=== PATIENT | male | born 1940 | race Caucasian/White ===

== ENCOUNTER 2023-12-03 10:02 | Inpatient (IN) | payer MEDICARE ==
[2023-12-03 10:28] LABS: #Monocytes 0.8 thou/uL (0.11-0.59); #Neutrophils 7.4 thou/uL (1.40-6.50); %Basophils 0.1 % (0.0-1.0); %Monocytes 9.1 % (0.0-10.0); %Neutrophils 84.3 % (42.0-75.0); Hemoglobin 11.8 g/dL (14.0-18.0); Mean Corpuscular HGB CONC 35.8 g/dL (32.0-36.0); Mean Corpuscular Hemoglobin 34.2 pg (27.0-31.0); Mean Corpuscular Volume 95.7 fl (78.0-98.0); Mean Platelet Volume 9.2 fL (7.4-10.4); Platelet Count 155 10x3/uL (130-400); RBC Distribution Width 11.4 % (11.5-14.5); Red Blood Cell (RBC) Count 3.45 mill/uL (4.70-6.10); White Blood Cell (WBC) Count 8.8 10x3/uL (4.8-10.8)
[2023-12-03] MEDS ORDERED: Iopamidol-370 76% 500 ML MDV (1 ML CHARGE) ONE (10:43)
[2023-12-03 10:44] LABS: ALT (SGPT) 13 U/L (8-55); AST (SGOT) 16 U/L (5-34); Albumin 3.9 g/dL (3.4-4.8); Alkaline Phosphatase 64 U/L (40-110); Anion Gap 15 mmol/L (10-20); BUN (Urea Nitrogen) 15 mg/dL (8.4-25.7); Bilirubin, Total 1.2 mg/dL (0.2-1.2); Calc. Creatinine Clearance 0 mL/min (70-130); Calcium 8.9 mg/dL (7.8-10.44); Carbon Dioxide 24 mmol/L (23-31); Chloride 97 mmol/L (98-107); Estimated GFR 88; Globulin 2.7 g/dL (2.4-3.5); Glucose 142 mg/dL (83-110); Potassium 3.2 mmol/L (3.5-5.1); Protein, Total 6.6 g/dL (5.8-8.1); Sodium 133 mmol/L (136-145)
[2023-12-03 11:38] LABS: Acetaminophen Less than 10 mcg/mL (10.0-30.0); Alcohol Less than 10.0 mg/dL (Less than 10); CK (CPK) 75 U/L (30-200); Salicylate Less than 8.0 mg/dL (15.0-30.0)
[2023-12-03] MEDS ORDERED: fentaNYL 50 mcg/mL 1 mL Vial ONE (11:39)
[2023-12-03 11:47] LABS: Troponin I 0.049 ng/mL (< 0.028)
[2023-12-03 11:50] LABS: INR-International Normal Ratio 1.1; PTT 36.3 sec (22.9-36.1); Prothrombin Time 14.4 sec (12.0-14.7)
[2023-12-03] MEDS ORDERED: Labetalol HCl 100 MG/20 ML VIAL ONE (12:29)
[2023-12-03] MEDS ORDERED: Potassium Bicarbonate/Cit Ac 20 MEQ TAB ONE (12:29)
[2023-12-03] MEDS ORDERED: Furosemide 40 MG (4 mL) VIAL ONE (12:29)
[2023-12-03] MEDS ORDERED: Aspirin Chewable 81 MG TAB ONE (13:09)
[2023-12-03 13:40] LABS: Bilirubin Negative (Negative); Blood, Urine 3+ (Negative); CAUTI Indications for Culture Alt mental st,lethar; Clarity Turbid (Clear); Glucose, Urine (Dipstick) Normal (Negative); Ketone, Urine Negative (Negative); Leukocyte Negative Leu/uL (Negative); Nitrite Negative (Negative); Protein, Urine (Dipstick) 50 mg/dL (Neg-Trace); Specific Gravity, Urine 1.011 (1.002-1.036); Squamous Epithelial None Seen HPF (0-3); Urobilinogen Normal mg/dL (Less than 2); pH, Urine 7.5 (5.0-9.0)
[2023-12-03 13:48] LABS: Amphetamine Not Detected (NotDetected); Barbiturates Screen Not Detected (NotDetected); Benzodiazepine Screen Not Detected (NotDetected); Cocaine Metabolite Screen Not Detected (NotDetected); Methadone Not Detected (NotDetected); Methamphetamine Not Detected (NotDetected); Opiate Screen Detected (NotDetected); Oxycodone Screen Not Detected (NotDetected); Phencyclidine (PCP) Not Detected (NotDetected); THC/Cannabinoid Screen Not Detected (NotDetected); Tricyclic Screen Not Detected (NotDetected)
[2023-12-03 13:57] LABS: Lactic Acid 1.3 mmol/L (0.5-2.2)
[2023-12-03 14:12] LABS: Bacteria/HPF 4+ HPF (None Seen); RBC/HPF 0-3 HPF (0-3)
[2023-12-03 14:16] LABS: Urine Culture Reflex No No
[2023-12-03 14:18] LABS: Troponin I 0.044 ng/mL (< 0.028)
[2023-12-03] MEDS ORDERED: Senokot S 8.6-50 MG TAB PO PRN (15:13)
[2023-12-03] MEDS ORDERED: Guaifenesin DM 100-10/5 ML UDCUP PO PRN (15:13)
[2023-12-03] MEDS ORDERED: Labetalol HCl 100 MG/20 ML VIAL SLOW IVP PRN (15:13)
[2023-12-03] MEDS ORDERED: Ondansetron PF 4 MG/2 ML Vial IVP PRN (15:13)
[2023-12-03] MEDS: hydrALAZINE 20 MG/ML VIAL SLOW IVP PRN (16:47)
[2023-12-03] MEDS ORDERED: hydrALAZINE 20 MG/ML VIAL ONE (16:48)
[2023-12-03] MEDS: HYDROcodone/Acetaminophen 5/325 mg Tablet PO PRN (18:25)
[2023-12-03 19:12] LABS: Troponin I 0.071 ng/mL (< 0.028)
[2023-12-03] MEDS ORDERED: HYDROcodone/Acetaminophen 5/325 mg Tablet PO PRN (21:48)
[2023-12-03] MEDS: Sodium Chloride 0.9% 500 ML IV SCH (21:48)
[2023-12-03] MEDS: Simvastatin 5 MG TAB PO SCH (23:43)
[2023-12-03] MEDS: Multivit, Therapeutic 1 TAB PO SCH (23:43)
[2023-12-03] MEDS: Apixaban 2.5 MG TAB PO SCH (23:43)
[2023-12-03] MEDS: Multivitamin w/Zinc Stress 1 TAB PO SCH (23:43)
[2023-12-03] MEDS: Ketorolac Tromethamine 30 MG (1 mL) VIAL IVP SCH (23:44)
[2023-12-04 05:47] LABS: #Neutrophils 8.6 thou/uL (1.40-6.50); %Lymphocytes 6.6 % (21.0-51.0); %Monocytes 9.9 % (0.0-10.0); Hematocrit 32.4 % (42.0-52.0); Hemoglobin 11.2 g/dL (14.0-18.0); Mean Corpuscular HGB CONC 34.6 g/dL (32.0-36.0); Mean Corpuscular Hemoglobin 34.3 pg (27.0-31.0); Mean Platelet Volume 9.6 fL (7.4-10.4); Platelet Count 172 10x3/uL (130-400); RBC Distribution Width 11.8 % (11.5-14.5); Red Blood Cell (RBC) Count 3.27 mill/uL (4.70-6.10); White Blood Cell (WBC) Count 10.4 10x3/uL (4.8-10.8)
[2023-12-04 05:51] LABS: Mean Corpuscular Volume 99.1 fl (78.0-98.0)
[2023-12-04 06:12] LABS: Anion Gap 15 mmol/L (10-20); BUN (Urea Nitrogen) 21 mg/dL (8.4-25.7); Calc. Creatinine Clearance 39 mL/min (70-130); Carbon Dioxide 28 mmol/L (23-31); Chloride 98 mmol/L (98-107); Estimated GFR 67; Glucose 107 mg/dL (83-110); Magnesium 2.2 mg/dL (1.6-2.6); Potassium 3.9 mmol/L (3.5-5.1); Sodium 137 mmol/L (136-145)
[2023-12-04] MEDS: Furosemide 40 MG (4 mL) VIAL SLOW IVP SCH (07:37)
[2023-12-04] MEDS: Tamsulosin HCl 0.4 MG CAP PO SCH (09:57)
[2023-12-04] MEDS: Lidocaine 4% Patch TD SCH (09:57)
[2023-12-04] MEDS: Finasteride 5 MG TAB PO SCH (09:57)
[2023-12-04] MEDS: GoLYTELY 4,000 ml Bottle PO SCH (19:14)
[2023-12-04] MEDS: Cephalexin 250 MG CAP PO SCH (20:10)
[2023-12-04] MEDS: Transdermal Patch Removal TOP SCH (20:11)
[2023-12-05] MEDS: Ondansetron ODT 4 MG TAB PO PRN (00:39)
[2023-12-05] MEDS ORDERED: Electrolyte Replacement Protocol 1 EACH FS SCH ×2 (04:15→16:00)
[2023-12-05] MEDS: Metoprolol Tartrate 5 MG (5 mL) VIAL IVP SCH ×2 (04:27→05:50)
[2023-12-05 04:46] LABS: Anion Gap 14 mmol/L (10-20); BUN (Urea Nitrogen) 30 mg/dL (8.4-25.7); Calc. Creatinine Clearance 49 mL/min (70-130); Calcium 8.4 mg/dL (7.8-10.44); Carbon Dioxide 29 mmol/L (23-31); Chloride 96 mmol/L (98-107); Estimated GFR 82; Glucose 110 mg/dL (83-110); Magnesium 2.2 mg/dL (1.6-2.6); Potassium 2.8 mmol/L (3.5-5.1); Sodium 136 mmol/L (136-145)
[2023-12-05 04:50] LABS: Troponin I 0.051 ng/mL (< 0.028)
[2023-12-05] MEDS: Potassium Bicarbonate/Cit Ac 20 MEQ TAB PO SCH (05:04)
[2023-12-05 05:38] LABS: #Monocytes 0.8 thou/uL (0.11-0.59); %Basophils 0.1 % (0.0-1.0); %Eosinophils 0.1 % (0.0-10.0); %Lymphocytes 9.1 % (21.0-51.0); %Monocytes 10.6 % (0.0-10.0); %Neutrophils 79.6 % (42.0-75.0); Hemoglobin 10.3 g/dL (14.0-18.0); Mean Corpuscular HGB CONC 35.5 g/dL (32.0-36.0); Mean Corpuscular Hemoglobin 34.7 pg (27.0-31.0); Mean Corpuscular Volume 97.6 fl (78.0-98.0); Mean Platelet Volume 9.4 fL (7.4-10.4); Platelet Count 168 10x3/uL (130-400); RBC Distribution Width 11.8 % (11.5-14.5); Red Blood Cell (RBC) Count 2.97 mill/uL (4.70-6.10); White Blood Cell (WBC) Count 7.6 10x3/uL (4.8-10.8)
[2023-12-05] MEDS: Sodium Chloride 0.9% 500 ML IV SCH (05:50)
[2023-12-05] MEDS: dilTIAZem 125 MG in Sodium Chloride 0.9% 100 ML IVPB SCH (05:53)
[2023-12-05] MEDS: Potassium Chloride 20 MEQ in Premix 1 BAG IVPB SCH (05:56)
[2023-12-05] MEDS ORDERED: Losartan 25 MG TAB PO SCH (09:00)
[2023-12-05] MEDS: Fleet Saline Enema 133 ML BOT PR SCH (09:52)
[2023-12-05] MEDS: Amiodarone 200 MG TAB PO SCH ×2 (11:44→14:58)
[2023-12-05 13:25] LABS: Anion Gap 14 mmol/L (10-20); BUN (Urea Nitrogen) 28 mg/dL (8.4-25.7); Calc. Creatinine Clearance 49 mL/min (70-130); Calcium 9.6 mg/dL (7.8-10.44); Carbon Dioxide 32 mmol/L (23-31); Chloride 93 mmol/L (98-107); Estimated GFR 85; Glucose 112 mg/dL (83-110); Potassium 3.2 mmol/L (3.5-5.1); Sodium 136 mmol/L (136-145)
[2023-12-05] MEDS ORDERED: Potassium Chloride 20 MEQ in Premix 1 BAG IVPB SCH (16:00)
[2023-12-05] MEDS: Potassium Chloride 20 MEQ TAB PO SCH ×2 (18:39→18:46)
[2023-12-05] MEDS: HYDROcodone/Acetaminophen 5/325 mg Tablet PO PRN (20:38)
[2023-12-06 05:03] LABS: #Eosinphils 0.1 thou/uL (0.0-0.7); #Monocytes 0.7 thou/uL (0.11-0.59); #Neutrophils 2.9 thou/uL (1.40-6.50); %Basophils 0.4 % (0.0-1.0); %Lymphocytes 17.8 % (21.0-51.0); %Monocytes 15.8 % (0.0-10.0); %Neutrophils 62.6 % (42.0-75.0); Hematocrit 28.6 % (42.0-52.0); Hemoglobin 9.9 g/dL (14.0-18.0); Mean Corpuscular HGB CONC 34.6 g/dL (32.0-36.0); Mean Corpuscular Hemoglobin 34.1 pg (27.0-31.0); Mean Corpuscular Volume 98.6 fl (78.0-98.0); Platelet Count 162 10x3/uL (130-400); RBC Distribution Width 11.7 % (11.5-14.5); White Blood Cell (WBC) Count 4.7 10x3/uL (4.8-10.8)
[2023-12-06 05:34] LABS: Anion Gap 13 mmol/L (10-20); BUN (Urea Nitrogen) 24 mg/dL (8.4-25.7); Calc. Creatinine Clearance 47 mL/min (70-130); Calcium 8.4 mg/dL (7.8-10.44); Carbon Dioxide 28 mmol/L (23-31); Chloride 97 mmol/L (98-107); Estimated GFR 81; Glucose 88 mg/dL (83-110); Magnesium 1.9 mg/dL (1.6-2.6); Potassium 3.1 mmol/L (3.5-5.1); Sodium 135 mmol/L (136-145)
[2023-12-06] MEDS: Magnesium 2 GM/50 ML(in water) 2 GM in Premix 1 BAG IVPB SCH (08:47)
[2023-12-06] MEDS: Potassium Bicarbonate/Cit Ac 20 MEQ TAB PO SCH (08:49)
[2023-12-06 13:09] VITALS: BMI 17.9
[2023-12-06] MEDS: Amiodarone 200 MG TAB PO SCH (19:47)
[2023-12-07 05:28] LABS: #Eosinphils 0.2 thou/uL (0.0-0.7); #Monocytes 0.7 thou/uL (0.11-0.59); #Neutrophils 3.6 thou/uL (1.40-6.50); %Basophils 0.4 % (0.0-1.0); %Eosinophils 3.6 % (0.0-10.0); %Lymphocytes 14.7 % (21.0-51.0); %Neutrophils 68.1 % (42.0-75.0); Hematocrit 28.9 % (42.0-52.0); Mean Corpuscular HGB CONC 34.6 g/dL (32.0-36.0); Mean Corpuscular Volume 98.3 fl (78.0-98.0); Mean Platelet Volume 9.2 fL (7.4-10.4); Platelet Count 183 10x3/uL (130-400); RBC Distribution Width 11.7 % (11.5-14.5); Red Blood Cell (RBC) Count 2.94 mill/uL (4.70-6.10); White Blood Cell (WBC) Count 5.3 10x3/uL (4.8-10.8)
[2023-12-07 05:47] LABS: Anion Gap 11 mmol/L (10-20); BUN (Urea Nitrogen) 18 mg/dL (8.4-25.7); Calc. Creatinine Clearance 51 mL/min (70-130); Calcium 8.7 mg/dL (7.8-10.44); Carbon Dioxide 29 mmol/L (23-31); Chloride 98 mmol/L (98-107); Estimated GFR 86; Glucose 95 mg/dL (83-110); Magnesium 2.4 mg/dL (1.6-2.6); Potassium 3.9 mmol/L (3.5-5.1); Sodium 134 mmol/L (136-145)
[2023-12-07] MEDS: Polyethylene Glycol 3350 17 GM Packet PO SCH (08:22)
[2023-12-07 12:14] VITALS: BP 135/79; TEMP 98
== END 2023-12-07 14:25 | disposition home or self-care (01) | DRG 884 ==
LOC: EEVIPCON 10:02 → ERS 10:02 → ERHOLD 13:17 → 2NO 17:44
PROVIDERS: ADMIT Emergency Medicine; ATTEND Hospitalist
DX: F03.90 Unspecified dementia, unspecified severity, without behavioral disturbance, psychotic disturbance, mood disturbance, and anxiety (principal); I50.43 Acute on chronic combined systolic (congestive) and diastolic (congestive) heart failure; F05 Delirium due to known physiological condition; I67.4 Hypertensive encephalopathy; S32.029A Unspecified fracture of second lumbar vertebra, initial encounter for closed fracture; R44.3 Hallucinations, unspecified; I16.1 Hypertensive emergency; I5A Non-ischemic myocardial injury (non-traumatic); F19.921 Other psychoactive substance use, unspecified with intoxication with delirium; Z66 Do not resuscitate; I11.0 Hypertensive heart disease with heart failure; I25.10 Atherosclerotic heart disease of native coronary artery without angina pectoris; I48.0 Paroxysmal atrial fibrillation; M54.50 Low back pain, unspecified; K59.00 Constipation, unspecified; I49.5 Sick sinus syndrome; E87.6 Hypokalemia; R33.9 Retention of urine, unspecified; N40.0 Benign prostatic hyperplasia without lower urinary tract symptoms; Z95.1 Presence of aortocoronary bypass graft; Z79.899 Other long term (current) drug therapy; Z98.890 Other specified postprocedural states
CPT/HCPCS: 36415; 51701; 70450; 71045; 72131; 74177; 80048; 80053; 80306; 80307; 81001; 82140; 82550; 83605; 83735; 83880; 84484; 85025; 85610; 85730; 93005; 93010; 93306; 96374; 96375; J0360; J1885; J1940; J3010; J3475; J3480; J3490; J7030; Q0162; Q9967